=== PATIENT | male | born 1990 | race African-American/Black ===

== ENCOUNTER 2019-10-26 09:35 | Emergency (ER) | payer OTHER ==
[~2019-10-26] VITALS: Ht 185.4 cm; Wt 74.8 kg
[2019-10-26] MEDS ORDERED: LIDOCAINE 1%-EPI 1:100,000 20 ML VIAL TP ONE (10:00)
[2019-10-26] MEDS ORDERED: LIDOCAINE 1%-EPI 1:100,000 20 ML VIAL ONE (10:01)
--- NOTE | 2019-10-26 11:00 | NUR ---
DR VIZCARRA AT BEDSIDE SUTURING PATIENT IN ROOM 04B.
--- NOTE | 2019-10-26 11:35 | NUR ---
Patient discharged to home in stable condition. Written and verbal after care instructions given. Patient verbalizes understanding of instructions.
[2019-10-26 11:40] VITALS: BP 140/72
== END 2019-10-26 11:42 | disposition home or self-care (01) ==
LOC: ER 09:35
PROC: 0HQEXZZ Repair Left Lower Arm Skin, External Approach (ICD-10-PCS; principal; 2019-10-26)
PROC: 0HQGXZZ Repair Left Hand Skin, External Approach (ICD-10-PCS; principal; 2019-10-26)
DX: S51.812A Laceration without foreign body of left forearm, initial encounter (principal); S61.412A Laceration without foreign body of left hand, initial encounter; W01.110A Fall on same level from slipping, tripping and stumbling with subsequent striking against sharp glass, initial encounter; Y93.E1 Activity, personal bathing and showering; Y92.012 Bathroom of single-family (private) house as the place of occurrence of the external cause
CPT/HCPCS: 99284; 12005; 73090; 73130; J3490; A4217; A4663

== ENCOUNTER 2019-10-28 08:47 | Emergency (ER) | payer OTHER ==
[~2019-10-28] VITALS: Ht 185.4 cm; Wt 74.8 kg
--- NOTE | 2019-10-28 09:20 | NUR ---
DR Linton at the bedside for MSE. Suture site unwraaped.
--- NOTE | 2019-10-28 09:31 | NUR ---
Cleaned and dressing placed per MD order, pt tolorated well.
[2019-10-28 09:32] VITALS: BP 130/67
--- NOTE | 2019-10-28 09:33 | NUR ---
Patient discharged to home in stable conditon. Written and verbal after care instructions given. Patient verbalizes understanding of instructions. Pt left Er w/ steady gait.
== END 2019-10-28 09:33 | disposition home or self-care (01) ==
LOC: ER 08:47
DX: S51.812D Laceration without foreign body of left forearm, subsequent encounter (principal); S61.412D Laceration without foreign body of left hand, subsequent encounter; W45.8XXD Other foreign body or object entering through skin, subsequent encounter
CPT/HCPCS: A4217; A4663

== ENCOUNTER 2019-10-30 12:40 | Emergency (ER) | payer OTHER ==
[~2019-10-30] VITALS: Ht 185.4 cm; Wt 74.8 kg
[2019-10-30] MEDS ORDERED: TDAP DIPH,PERTUSS,TET VAC/PF 0.5 ML DISP.SYRIN IM ONE ×2 (12:54→13:00)
--- NOTE | 2019-10-30 13:04 | NUR ---
Patient discharged to home in stable condition. Written and verbal after care instructions given to patient. Patient verbalizes understanding & compliance of instructions specially for wound care & return visit for suture removal.
== END 2019-10-30 13:07 | disposition home or self-care (01) ==
LOC: ER 12:40
DX: S61.512D Laceration without foreign body of left wrist, subsequent encounter (principal); S51.812D Laceration without foreign body of left forearm, subsequent encounter; W45.8XXD Other foreign body or object entering through skin, subsequent encounter
CPT/HCPCS: 90715; A4663